=== PATIENT | male | born 1985 | race Caucasian/White ===

== ENCOUNTER 2023-07-17 12:23 | Outpatient (OUT) | payer MEDICARE, SELFPAY ==
--- NOTE | 2023-07-17 13:00 | RT_ITS ---
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 Findings were considered accurate and reproducible, with exception of FVC which did not meet ATS standards. Both pre- and post-bronchodilator values utilized for spirometry. No prior studies available for comparison. Spirometry (based on pre-bronchodilator values): -FEV1/FVC: Normal @ 85% -FEV1: Reduced @ 76% -FVC: Mildly reduced @ 71% -There is no significant bronchodilator response. -MVV: Normal @ 137% Lung volumes by plethysmography: -RV: Normal @ 88% -TLC: Low normal @ 81% Diffusion capacity: -DLCO: Normal @ 84% when corrected for Hb 16.9g/dL Flow-volume loop: -Mild-moderate restrictive pattern Flow-pressure loop: ???Normal pattern Impressions: -Mild restriction on spirometry with normal lung volumes and diffusion capacity. MVV is normal as well. This suggests an obesity pattern based on stated BMI 48.8. Hb is mildly elevated at 16.9g/dL indicating possible polycythemia. Clinical correlation required. Electronically Signed On 07-19-2023 15:08:42 EDT by Connor Garibay
[2023-07-17 13:36] LABS: Basophils Absolute Auto 0.1 10^3/uL (0.0-0.1); Basophils Percent Auto 0.5 % (0.2-2.0); Eosinophils Percent Auto 0.1 % (0.9-7.0); Hematocrit 50.6 % (42.0-54.0); Hemoglobin 16.9 g/dL (14.0-18.0); Immature Granulocytes Pct Auto 0.8 % (0.0-0.5); Lymphocytes Absolute Auto 1.6 10^3/uL (1.2-3.8); Lymphocytes Percent Auto 13.1 % (20.5-60.0); Mean Corpuscular HGB Conc 33.4 g/dL (29.9-35.2); Mean Corpuscular Hemoglobin 30.3 pg (25.9-34.0); Mean Corpuscular Volume 90.7 fL (80.0-94.0); Mean Platelet Volume 11.2 fL (9.5-13.5); Monocytes Absolute Auto 0.7 10^3/uL (0.3-0.8); Monocytes Percent Auto 5.9 % (1.7-12.0); Neutrophils Absolute Auto 9.5 10^3/uL (1.4-6.5); Neutrophils Percent Auto 79.6 % (43.0-75.0); Platelet Count 153 10^3/uL (150-450); Red Blood Count 5.58 10^6/uL (4.70-6.10); Red Cell Distribution Width 11.8 % (11.0-15.0)
[2023-07-17 13:38] LABS: Bilirubin Urine NEGATIVE (NEGATIVE); Blood Urine NEGATIVE (NEGATIVE); Clarity Urine CLEAR (CLEAR); Color Urine YELLOW (YELLOW); Glucose Urine UA >=1000 mg/dL (NEGATIVE); Ketones Urine NEGATIVE (NEGATIVE); Leukocyte Esterase Urine NEGATIVE (NEGATIVE); Nitrite Urine NEGATIVE (NEGATIVE); Protein Urine TRACE mg/dL (NEG/TRACE); Specific Gravity Urine 1.025 (1.005-1.025); Urobilinogen Urine 0.2 EU/dL (0.2-1.0)
[2023-07-17 13:51] LABS: Chol HDL Ratio 3.4; Cholesterol 212 mg/dL (<=200); HDL Cholesterol 63 mg/dL (40-60); Triglycerides 107 mg/dL (<=150); VLDL CHOLESTEROL 21.4 mg/dL
[2023-07-17 14:05] LABS: Bacteria Urine NONE SEEN #/HPF (NONE SEEN); Mucus Urine LARGE (NONE SEEN); RBC Urine NONE SEEN #/HPF (0-2); Squamous Epithelial Cell Urine FEW #/LPF (NONE/RARE); WBC Urine NONE SEEN #/HPF (NONE SEEN)
--- NOTE | 2023-07-17 14:08 | XR_ITS ---
The [address] [address] Patient Name: MIRANDA WELLS MRN: [id number] date: 1985 Sex: M Assigned Patient Location: CARD Current Patient Location: CARD Accession/Order Number: [id number] Exam Date: 07/17/2023 14:17 Report Date: 07/17/2023 15:48 At the request of: SYLVIA SIDDIQUI Procedure: XR hip RT min 2V PROCEDURE: XR hip RT min 2V HISTORY: Right hip pain M25.551 , chronic COMPARISON: None. FINDINGS: BONES:No fracture, acute abnormality, or significant arthropathy. SOFT TISSUES:No visible soft tissue swelling. EFFUSION:None visible. OTHER: Negative. XR/XR hip RT min 2V IMPRESSION: 1. No acute bone abnormality or significant degenerative joint disease to account for patient's symptoms. 2. 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 Electronically authenticated by: VERONIKA MUÑOZ Date: 07/17/2023 15:48
--- NOTE | 2023-07-17 14:08 | XR_ITS ---
The [address] [address] Patient Name: MIRANDA WELLS MRN: [id number] date: 1985 Sex: M Assigned Patient Location: CARD Current Patient Location: CARD Accession/Order Number: [id number] Exam Date: 07/17/2023 14:17 Report Date: 07/17/2023 15:46 At the request of: SYLVIA SIDDIQUI Procedure: XR lumbar spine 2-3V EXAMINATION: XR lumbar spine 2-3V HISTORY: DDD, Lumbar M51.36 ; chronic lumbar and hip pain COMPARISON: No relevant comparison available. FINDINGS: BONES: Mild degenerative facet arthropathy L4-5, L5-S1. No fracture, spondylolisthesis, bone lesion. DISC SPACES: No significant disc height narrowing, subluxation, or endplate abnormality. PARASPINOUS: Negative. No paraspinous abnormality is seen. OTHER: Negative. XR/XR lumbar spine 2-3V IMPRESSION: 1. Mild degenerative facet arthropathy of lower lumbar spine. 2. No appreciable significant degenerative disc disease. 3. Consider MRI of lumbar spine if symptoms persist. Electronically authenticated by: VERONIKA MUÑOZ Date: 07/17/2023 15:46
--- NOTE | 2023-07-17 14:09 | XR_ITS ---
The [address] [address] Patient Name: MIRANDA WELLS MRN: [id number] date: 1985 Sex: M Assigned Patient Location: CARD Current Patient Location: CARD Accession/Order Number: [id number] Exam Date: 07/17/2023 14:17 Report Date: 07/17/2023 14:46 At the request of: SYLVIA SIDDIQUI Procedure: XR chest 2V EXAM: XR chest 2V HISTORY: Dyspnea R06.09 COMPARISON: 11/28/2021 TECHNIQUE: Upright PA and lateral chest x-ray FINDINGS: The study is limited by shallow inspiration and technique. The heart appears borderline enlarged, which may also be related to shallow inspiration. No acute infiltrate, effusion or pneumothorax is identified. There is been interval clearing of the lung bases. The left-sided pacemaker remains in place. The osseous structures are grossly intact. XR/XR chest 2V IMPRESSION: Limited study. The lung bases are now clear. There is no clear evidence of a focal infiltrate or overt cardiac decompensation. Electronically authenticated by: PATRICIA LOBO Date: 07/17/2023 14:46
--- NOTE | 2023-07-17 14:09 | XR_ITS ---
The [address] [address] Patient Name: MIRANDA WELLS MRN: [id number] date: 1985 Sex: M Assigned Patient Location: CARD Current Patient Location: CARD Accession/Order Number: [id number] Exam Date: 07/17/2023 14:17 Report Date: 07/17/2023 15:18 At the request of: SYLVIA SIDDIQUI Procedure: XR thoracic spine 3V EXAM: XR thoracic spine 3V HISTORY: DDD, Lumbar M51.36 COMPARISON: None. TECHNIQUE: AP and lateral views of the thoracic spine were obtained. FINDINGS: There is very slight anterior wedging of 2 vertebral bodies in the lower thoracic spine. These are accompanied by osteophytes and appear chronic in nature. There is no evidence of an acute fracture. Small osteophytes are seen throughout the thoracic spine. The posterior elements are intact. No significant focal abnormality is otherwise identified in the vertebral bodies. There is slight narrowing of the disc spaces throughout the mid and lower thoracic spine. XR/XR thoracic spine 3V IMPRESSION: Slight deformity of 2 lower thoracic vertebral bodies appear chronic in nature. These appear to be the T11 and T12 vertebral bodies, and similar findings can be seen in the lower thoracic spine in the CT scan of the abdomen and pelvis performed 01/16/2022. Some degenerative changes are present without evidence of an acute fracture. Electronically authenticated by: PATRICIA LOBO Date: 07/17/2023 15:18
[2023-07-17] MEDS: ALBUTEROL SULFATE 2.5 MG/3 ML VIAL NEB IH (14:12)
[2023-07-17 14:53] LABS: Alanine Aminotransferase 25 U/L (16-63); Albumin Globulin Ratio 1.1; Albumin Level 3.9 g/dL (3.4-5.0); Alkaline Phosphatase 80 U/L (46-116); Anion Gap 13.8; Aspartate Amino Transferase 9 U/L (15-37); BUN Creatinine Ratio 17.3; Bilirubin Total 0.4 mg/dL (0.2-1.0); Carbon Dioxide 27.3 mmol/L (21.0-32.0); Chloride 102 mmol/L (98-107); Estimated GFR (African America >60 (>=60); Estimated GFR (Non-African Ame >60 (>=60); Globulin 3.7 g/dL; Glucose 98 mg/dL (74-106); Potassium 4.1 mmol/L (3.5-5.1); Sodium 139 mmol/L (136-145); Total Protein 7.6 g/dL (6.4-8.2)
[2023-07-26 01:07] LABS: Free Testosterone(Direct) 1.5 pg/mL (8.7-25.1); Testosterone 168 ng/dL (264-916)
== END 2023-07-17 12:24 | disposition home or self-care (01) ==
LOC: CARD 12:27
PROVIDERS: PCP Nurse Practitioner; Visit Provider Nurse Practitioner
DX: M51.36 Other intervertebral disc degeneration, lumbar region (principal); M25.551 Pain in right hip; R06.09 Other forms of dyspnea; R68.82 Decreased libido; I50.9 Heart failure, unspecified; E66.01 Morbid (severe) obesity due to excess calories; Z68.41 Body mass index [BMI] 40.0-44.9, adult
CPT/HCPCS: 36415; 71046; 72072; 72100; 73502; 80048; 80053; 80061; 81001; 84402; 84403; 85025; 94060; 94726; 94729

== ENCOUNTER 2025-09-04 13:44 | Outpatient (OUT) | payer OTHER, SELFPAY ==
[2025-09-04 14:24] LABS: Glucose Urine UA NEGATIVE (NEGATIVE)
[2025-09-04 14:44] LABS: Hematocrit 50.1 % (42.0-54.0); Hemoglobin 17.4 g/dL (14.0-18.0); Immature Granulocytes Abs Auto 0.02 10^3/uL (0.00-0.03); Immature Granulocytes Pct Auto 0.2 % (0.0-0.5); Lymphocytes Absolute Auto 1.3 10^3/uL (1.2-3.8); Mean Corpuscular HGB Conc 34.7 g/dL (29.9-35.2); Mean Corpuscular Hemoglobin 31.2 pg (25.9-34.0); Mean Corpuscular Volume 89.8 fL (80.0-94.0); Platelet Count 171 10^3/uL (150-450); Red Blood Count 5.58 10^6/uL (4.70-6.10); White Blood Count 8.5 10^3/uL (4.0-11.0)
[2025-09-04 15:15] LABS: Alanine Aminotransferase 59 U/L (16-63); Albumin Globulin Ratio 0.9; Albumin Level 3.9 g/dL (3.4-5.0); Alkaline Phosphatase 84 U/L (46-116); Anion Gap 11.3; Aspartate Amino Transferase 27 U/L (15-37); Blood Urea Nitrogen 10.0 mg/dL (7.0-18.0); Calcium 9.2 mg/dL (8.5-10.1); Carbon Dioxide 31.0 mmol/L (21.0-32.0); Chloride 101 mmol/L (98-107); Cholesterol 284 mg/dL (<=200); Estimated GFR (African America >60 (>=60 mL/min/1.73m^2); Estimated GFR (Non-African Ame >60 (>=60 mL/min/1.73m^2); Globulin 4.2 g/dL; Glucose 112 mg/dL (74-106); HDL Cholesterol 56 mg/dL (40-60); Magnesium 1.9 mg/dL (1.8-2.4); Potassium 4.3 mmol/L (3.5-5.1); Sodium 139 mmol/L (136-145); Thyroid Stimulating Hormone 1.241 uIU/mL (0.358-3.740); Total Protein 8.1 g/dL (6.4-8.2); Triglycerides 129 mg/dL (<=150); VLDL CHOLESTEROL 25.8 mg/dL
[2025-09-04 16:43] LABS: Microalbum Creatinine Ratio Ur 10.0 mg/g (0.0-29.9)
[2025-09-04 18:07] LABS: Cast Seen? NONE SEEN #/LPF (NONE SEEN); Crystals Seen? None Seen #/HPF (None Seen)
== END 2025-09-04 13:45 | disposition home or self-care (01) ==
LOC: LAB 13:47
PROVIDERS: PCP Nurse Practitioner; Visit Provider Nurse Practitioner
DX: I11.0 Hypertensive heart disease with heart failure (principal); I50.22 Chronic systolic (congestive) heart failure; F41.1 Generalized anxiety disorder; Z87.891 Personal history of nicotine dependence; E61.2 Magnesium deficiency; F33.0 Major depressive disorder, recurrent, mild
CPT/HCPCS: 36415; 80053; 80061; 81001; 82043; 82570; 83735; 84439; 84443; 85025